=== PATIENT | male | born 1995 | race Caucasian/White ===

== ENCOUNTER 2023-05-15 19:52 | Emergency (ER) | payer OTHER ==
[~2023-05-15] VITALS: Ht 188 cm; Wt 70.3 kg
[2023-05-15] MEDS ORDERED: LEVE500 PO (21:18)
[2023-05-15 21:19] VITALS: BP 110/78
== END 2023-05-15 21:55 | disposition home or self-care (01) ==
LOC: ER 19:52
DX: G40.909 Epilepsy, unspecified, not intractable, without status epilepticus (principal); F41.9 Anxiety disorder, unspecified
CPT/HCPCS: 82947; 93005; 93010; 96365; 99285-25; J1953

== ENCOUNTER 2023-05-20 01:33 | Emergency (ER) | payer MEDICAID ==
[~2023-05-20] VITALS: Ht 188 cm; Wt 68.0 kg
[~2023-05-20 01:33] MED LIST: LEVE500 PO
[2023-05-20 01:43] VITALS: BP 137/123
== END 2023-05-20 02:00 | disposition home or self-care (01) ==
LOC: ER 01:33
DX: F10.20 Alcohol dependence, uncomplicated (principal); G40.909 Epilepsy, unspecified, not intractable, without status epilepticus; Z79.899 Other long term (current) drug therapy; W19.XXXA Unspecified fall, initial encounter
CPT/HCPCS: 99284

== ENCOUNTER 2023-07-05 10:13 | Emergency (ER) | payer MEDICAID ==
[~2023-07-05] VITALS: Ht 182.9 cm; Wt 72.6 kg
[2023-07-05 10:47] VITALS: BP 115/75
[2023-07-05] MEDS ORDERED: IBUP800 PO (12:43)
== END 2023-07-05 12:52 | disposition home or self-care (01) ==
LOC: ER 10:13
DX: S93.402A Sprain of unspecified ligament of left ankle, initial encounter (principal); G40.909 Epilepsy, unspecified, not intractable, without status epilepticus; Z79.899 Other long term (current) drug therapy; W10.9XXA Fall (on) (from) unspecified stairs and steps, initial encounter
CPT/HCPCS: 73610; 99283-25

== ENCOUNTER 2023-11-27 19:11 | Emergency (ER) | payer MEDICAID ==
[~2023-11-27] VITALS: Ht 182.9 cm; Wt 74.8 kg
[~2023-11-27 19:11] MED LIST changes: +IBUP800 PO
[2023-11-27 20:28] VITALS: BP 124/85
[2023-11-27 20:36] LABS: BASOPHILS ABSOLUTE AUTO 0.02 K/mm3 (0.00-0.23); BASOPHILS PERCENT AUTO 0 % (0-2); EOSINOPHILS ABSOLUTE AUTO 0.04 K/mm3 (0.00-0.68); EOSINOPHILS PERCENT AUTO 1 % (0-6); Hematocrit 45.2 % (37.0-53.0); Hemoglobin 15.6 g/dL (13.5-17.5); IMMATURE GRAN ABSOLUTE AUTO 0.01 K/mm3 (0.00-0.10); IMMATURE GRAN PERCENT AUTO 0 % (0-1); LYMPHOCYTES ABSOLUTE AUTO 1.98 K/mm3 (0.84-5.20); LYMPHOCYTES PERCENT AUTO 33 % (21-46); MONOCYTES ABSOLUTE AUTO 0.48 K/mm3 (0.16-1.47); MONOCYTES PERCENT AUTO 8 % (4-13); Mean Corpuscular HGB 29.5 pg (26.0-34.0); Mean Corpuscular HGB Conc 34.5 g/dL (31.5-36.5); Mean Corpuscular Volume 86 fL (80-100); Mean Platelet Volume 10.5 fL (9.1-12.4); NEUTROPHILS ABSOLUTE AUTO 3.53 K/mm3 (1.96-9.15); NEUTROPHILS PERCENT AUTO 58 % (41-73); Platelet Count 301 K/mm3 (150-400); RDW Coefficient Variation 12.6 % (11.7-14.2); RDW Standard Deviation 39.2 fL (35.1-46.3); Red Blood Cell Count 5.28 M/mm3 (4.30-5.90); White Blood Cell Count 6.06 K/mm3 (4.00-11.30)
[2023-11-27 20:48] LABS: Acetaminophen, Random <2.0 ug/mL (10.0-30.0); Alanine Aminotransfer (ALT/SGP 24 U/L (12-78); Albumin, Blood 4.6 g/dL (3.4-5.0); Albumin/Globulin Ratio 1.2 (0.8-1.8); Alk Phos 120 U/L (50-136); Anion Gap 10 mmol/L (3-11); Aspartate Aminotrans (AST/SGOT 22 U/L (12-37); Bilirubin, Total 0.7 mg/dL (0.1-1.0); Blood Urea Nitrogen 15 mg/dL (8-24); Bun/Creatinine Ratio 21.4 (12.0-20.0); CO2, Blood 22 mmol/L (21-32); Calcium, Blood 9.3 mg/dL (8.5-10.1); Chloride, Blood 112 mmol/L (98-108); Ethanol (Alcohol), Blood, Med <3 mg/dL; Glomerular Filtration Rate 130 (60-); Glucose, Blood 91 mg/dL (70-99); Potassium, Blood 3.1 mmol/L (3.5-5.5); Salicylate <1.7 mg/dL (2.8-20.0); Sodium, Blood 141 mmol/L (136-145); Total Protein, Blood 8.6 g/dL (6.4-8.2)
[2023-11-27] MEDS ORDERED: ESCI20 PO (21:08)
[2023-11-27] MEDS ORDERED: HYDHCL25 PO (21:08)
== END 2023-11-27 21:14 | disposition home or self-care (01) ==
LOC: ER 19:11
PROVIDERS: Student in an Organized Health Care Education/Training Program
DX: F32.A Depression, unspecified (principal)
CPT/HCPCS: 80053; 85025; 99285; G0480

== ENCOUNTER 2023-12-07 06:56 | Emergency (ER) | payer MEDICAID ==
[~2023-12-07] VITALS: Ht 182.9 cm; Wt 77.1 kg
[~2023-12-07 06:56] MED LIST changes: +ESCI20 PO; +HYDHCL25 PO
[2023-12-07] MEDS ORDERED: Ketorolac Tromethamine 30mg Vial IM ONE (08:25)
[2023-12-07] MEDS ORDERED: OxyCODONE 5 mg/Acetamin 325 mg TABLET PO ONE (08:25)
[2023-12-07] MEDS ORDERED: AMOCLA875 PO (08:27)
[2023-12-07] MEDS ORDERED: Percocet 5-3251 EACH PO (08:27)
[2023-12-07 09:20] VITALS: BP 124/89
== END 2023-12-07 09:21 | disposition home or self-care (01) ==
LOC: ER 06:56
DX: K04.7 Periapical abscess without sinus (principal)
CPT/HCPCS: 96372; 99283-25; A9270; J1885

== ENCOUNTER 2024-02-16 13:30 | Emergency (ER) | payer OTHER ==
[~2024-02-16] VITALS: Ht 182.9 cm; Wt 71.7 kg
[~2024-02-16 13:30] MED LIST changes: +AMOCLA875 PO; +Percocet 5-3251 EACH PO
[2024-02-16 13:36] VITALS: BP 115/83
[2024-02-16] MEDS ORDERED: OxyCODONE HCL 5 MG TAB PO ONE (13:50)
[2024-02-16] MEDS ORDERED: BETASEPT118 M1 PO (14:31)
[2024-02-16] MEDS ORDERED: OXAYDO5 M1 PO (14:31)
== END 2024-02-16 14:42 ==
LOC: ER 13:30
DX: S02.5XXA Fracture of tooth (traumatic), initial encounter for closed fracture (principal); K04.7 Periapical abscess without sinus; X58.XXXA Exposure to other specified factors, initial encounter
CPT/HCPCS: 99282; A9270

== ENCOUNTER 2024-02-23 20:06 | Emergency (ER) | payer OTHER ==
[~2024-02-23] VITALS: Ht 182.9 cm; Wt 71.7 kg
[~2024-02-23 20:06] MED LIST changes: +BETASEPT118 M1 PO; +OXAYDO5 M1 PO
[2024-02-23 20:15] VITALS: BP 119/74
[2024-02-23] MEDS ORDERED: Ketorolac Tromethamine 15mg Vial IM ONE (23:05)
[2024-02-23] MEDS ORDERED: OxyCODONE HCL 5 MG TAB PO ONE (23:05)
[2024-02-23] MEDS ORDERED: RX Prepack 6 Tabs Oxycodone 5mg UD ONE (23:05)
[2024-02-23] MEDS ORDERED: Amoxicillin/Clavulanate K 875 MG Tab PO ONE (23:05)
[2024-02-23] MEDS ORDERED: AMOCLA875 PO (23:07)
== END 2024-02-23 23:15 | disposition home or self-care (01) ==
LOC: ER 20:06
DX: K08.89 Other specified disorders of teeth and supporting structures (principal)
CPT/HCPCS: 96372; 99282-25; A9270; J1885

== ENCOUNTER 2024-05-11 14:35 | Emergency (ER) | payer OTHER ==
[~2024-05-11] VITALS: Ht 182.9 cm; Wt 68.0 kg
[2024-05-11 14:50] VITALS: BP 116/62
== END 2024-05-11 16:02 | disposition home or self-care (01) ==
LOC: ER 14:35
DX: S93.401A Sprain of unspecified ligament of right ankle, initial encounter (principal); X50.1XXA Overexertion from prolonged static or awkward postures, initial encounter
CPT/HCPCS: 73610; 99283-25

== ENCOUNTER 2024-10-19 00:30 | Emergency (ER) | payer OTHER ==
[~2024-10-19] VITALS: Ht 182.9 cm; Wt 81.7 kg
[2024-10-19 00:37] VITALS: BP 124/77
[2024-10-19] MEDS ORDERED: LEVE500 PO (00:38)
[2024-10-19] MEDS ORDERED: levETIRAcetam 1,500 MG in NS 100 ML IV ONE (00:40)
[2024-10-19 00:53] LABS: BASOPHILS ABSOLUTE AUTO 0.05 K/mm3 (0.00-0.23); BASOPHILS PERCENT AUTO 1 % (0-2); EOSINOPHILS PERCENT AUTO 2 % (0-6); Hematocrit 43.3 % (37.0-53.0); Hemoglobin 15.3 g/dL (13.5-17.5); IMMATURE GRAN ABSOLUTE AUTO 0.02 K/mm3 (0.00-0.10); IMMATURE GRAN PERCENT AUTO 0 % (0-1); LYMPHOCYTES ABSOLUTE AUTO 2.39 K/mm3 (0.84-5.20); LYMPHOCYTES PERCENT AUTO 39 % (21-46); MONOCYTES ABSOLUTE AUTO 0.75 K/mm3 (0.16-1.47); MONOCYTES PERCENT AUTO 12 % (4-13); Mean Corpuscular HGB 29.9 pg (26.0-34.0); Mean Corpuscular HGB Conc 35.3 g/dL (31.5-36.5); Mean Corpuscular Volume 85 fL (80-100); Mean Platelet Volume 9.7 fL (9.1-12.4); NEUTROPHILS ABSOLUTE AUTO 2.81 K/mm3 (1.96-9.15); NEUTROPHILS PERCENT AUTO 46 % (41-73); Platelet Count 330 K/mm3 (150-400); RDW Coefficient Variation 12.1 % (11.7-14.2); RDW Standard Deviation 37.4 fL (35.1-46.3); Red Blood Cell Count 5.12 M/mm3 (4.30-5.90); White Blood Cell Count 6.12 K/mm3 (4.00-11.30)
[2024-10-19 03:59] LABS: Albumin/Globulin Ratio 1.1 (0.8-1.8); Bilirubin, Total 0.2 mg/dL (0.1-1.0); Calcium, Blood 9.2 mg/dL (8.5-10.1); Creatinine, Blood 0.81 mg/dL (0.60-1.20); Globulin, Blood 3.8 g/dL (2.2-4.0); Potassium, Blood 3.4 mmol/L (3.5-5.5); Total Protein, Blood 7.8 g/dL (6.4-8.2)
== END 2024-10-19 01:20 | disposition home or self-care (01) ==
LOC: ER 00:30
PROVIDERS: Emergency Medicine
DX: G40.909 Epilepsy, unspecified, not intractable, without status epilepticus (principal); Z91.148 Patient's other noncompliance with medication regimen for other reason
CPT/HCPCS: 80053; 85025; 96365; 99284-25; J1953

== ENCOUNTER 2024-11-03 01:00 | Emergency (ER) | payer OTHER ==
[~2024-11-03] VITALS: Ht 182.9 cm; Wt 81.7 kg
[2024-11-03] MEDS ORDERED: Ondansetron HCl 2 MG / ML 2ML Vial IV ONE (01:25)
[2024-11-03] MEDS ORDERED: levETIRAcetam 1,000 MG in NS 100 ML IV ONE (01:25)
[2024-11-03] MEDS ORDERED: NS 1,000 ML IV SCH (01:25)
[2024-11-03 01:49] LABS: BASOPHILS ABSOLUTE AUTO 0.03 K/mm3 (0.00-0.23); BASOPHILS PERCENT AUTO 1 % (0-2); EOSINOPHILS ABSOLUTE AUTO 0.09 K/mm3 (0.00-0.68); EOSINOPHILS PERCENT AUTO 2 % (0-6); Hematocrit 44.6 % (37.0-53.0); Hemoglobin 15.4 g/dL (13.5-17.5); IMMATURE GRAN ABSOLUTE AUTO 0.01 K/mm3 (0.00-0.10); IMMATURE GRAN PERCENT AUTO 0 % (0-1); LYMPHOCYTES PERCENT AUTO 31 % (21-46); MONOCYTES ABSOLUTE AUTO 0.52 K/mm3 (0.16-1.47); MONOCYTES PERCENT AUTO 9 % (4-13); Mean Corpuscular HGB 29.4 pg (26.0-34.0); Mean Corpuscular HGB Conc 34.5 g/dL (31.5-36.5); Mean Corpuscular Volume 85 fL (80-100); NEUTROPHILS ABSOLUTE AUTO 3.23 K/mm3 (1.96-9.15); NEUTROPHILS PERCENT AUTO 58 % (41-73); Platelet Count 287 K/mm3 (150-400); RDW Coefficient Variation 12.3 % (11.7-14.2); RDW Standard Deviation 38.3 fL (35.1-46.3); Red Blood Cell Count 5.23 M/mm3 (4.30-5.90); White Blood Cell Count 5.58 K/mm3 (4.00-11.30)
[2024-11-03 02:07] LABS: Albumin, Blood 4.2 g/dL (3.4-5.0); Albumin/Globulin Ratio 1.1 (0.8-1.8); Bilirubin, Total 0.4 mg/dL (0.1-1.0); Bun/Creatinine Ratio 14.1 (12.0-20.0); Calcium, Blood 8.6 mg/dL (8.5-10.1); Creatinine, Blood 0.85 mg/dL (0.60-1.20); Globulin, Blood 3.9 g/dL (2.2-4.0); Potassium, Blood 3.6 mmol/L (3.5-5.5); Total Protein, Blood 8.1 g/dL (6.4-8.2)
[2024-11-03] MEDS ORDERED: Ondansetron Odt8 MG MM (02:31)
[2024-11-03 02:41] VITALS: BP 125/73
== END 2024-11-03 02:42 | disposition home or self-care (01) ==
LOC: ER 01:00
PROVIDERS: Emergency Medicine
DX: R42 Dizziness and giddiness (principal); Z76.0 Encounter for issue of repeat prescription; Z79.899 Other long term (current) drug therapy
CPT/HCPCS: 80053; 83735; 84484; 85025; 93005; 93010; 96374; 96375; 99284-25; J1953; J2405; J7030